=== PATIENT | female | born 1970 | race Caucasian/White ===

== ENCOUNTER 2018-12-07 14:44 | Emergency (ER) | payer OTHER ==
--- NOTE | 2018-12-07 15:22 | C.PDOC ---
History Of Present Illness 48 year old female presents for evaluation of dental pain for a few days. The patient reports waking up this morning with pain and swelling to the left side of her face to the periorbital area. Denies fever, chills, and any other as sociated symptoms. <Lillian Feliciano - Last Filed: 12/07/18 15:58> <Carly Rosas - Last Filed: 12/07/18 15:14> History Per: Patient History/Exam Limitations: no limitations Onset/Duration Of Symptoms: Days Current Symptoms Are (Timing): Still Present Recent travel outside of the [place]: No <Lillian Feliciano - Last Filed: 12/07/18 15:58> Chief Complaint (Nursing): Dental Pain Past Medical History Vital Signs: Last Vital Signs Temp 98.4 F 12/07/18 15:01 Pulse 115 H 12/07/18 15:01 Resp 20 12/07/18 15:01 BP 160/69 H 12/07/18 15:01 Pulse Ox 99 12/07/18 15:01 - Medical History PMH: Anxiety, Bipolar Disorder, Depression, Fractures, HTN, Hypercholesterolemia Denies: Chronic Kidney Disease - Social History Hx Alcohol Use: No Hx Substance Use: No - Immunization History Hx Tetanus Toxoid Vaccination: No Hx Influenza Vaccination: No Hx Pneumococcal Vaccination: No <Carly Rosas - Last Filed: 12/07/18 15:14> Reviewed: Historical Data, Nursing Documentation, Vital Signs Vital Signs: Last Vital Signs Temp 98.4 F 12/07/18 15:01 Pulse 99 H 12/07/18 15:37 Resp 17 12/07/18 15:37 BP 123/82 12/07/18 15:37 Pulse Ox 99 12/07/18 15:39 Family History: States: Unknown Family Hx <Lillian Feliciano - Last Filed: 12/07/18 15:58> Review Of Systems Constitutional: Negative for: Fever, Chills ENT: Positive for: Other ((+) dental pain. (+) swelling to the left side of the face to the periorbital area. ) <Lillian Feliciano - Last Filed: 12/07/18 15:58> Physical Exam - Physical Exam Skin: Warm, Dry Head: Atraumatic, Normacephalic, Other ((+) redness and exquisite tenderness maxillary area. (+) inferior periorbital swelling and erythema.) Eye(s): bilateral: Normal Inspection Ear(s): Bilateral: Normal Oral Mucosa: Moist Teeth: Other (missing (+) premolar and 2nd molar, small pieces of tooth visualized in the socket that appear decayed.) Throat: Normal, No Erythema, No Exudate Neck: Normal ROM, Supple, No Other ((-) cervical adenopathy.) Neurological/Psych: Oriented x3, Normal Speech, Normal Cognition <Lillian Feliciano - Last Filed: 12/07/18 15:58> ED Course And Treatment O2 Sat by Pulse Oximetry: 99 <RosasCarly - Last Filed: 12/07/18 15:14> - Laboratory Results Result Diagrams: 12/07/18 15:33 Pulse Ox Interpretation: Normal <Lillian Feliciano - Last Filed: 12/07/18 15:58> Medical Decision Making Medical Decision Making: Initial plan: -CT orbits/facials w/ contrast -Morphine -Blood sent. -Blood culture -Urinalysis <Lillian Feliciano - Last Filed: 12/07/18 15:58> Disposition <RosasCarly - Last Filed: 12/07/18 15:14> <Lillian Feliciano - Last Filed: 12/07/18 15:58> - Disposition Forms: [facility] (Maori) - Scribe Statement The provider has reviewed the documentation as recorded by the Scribe (Beba Aguilar) Provider Attestation: All medical record entries made by the Scribe were at my direction and personally dictated by me. I have reviewed the chart and agree that the record accurately reflects my personal performance of the history, physical exam, medical decision making, and the department course for this patient. I have also personally directed, reviewed, and agree with the discharge instructions and disposition. <BradenLillian Michelle - Last Filed: 12/07/18 15:58>
[2018-12-07 15:36] LABS: BASO # 0.1 K/uL (0.0-0.2); BASO % 0.6 % (0.0-2.0); EOS % 0.2 % (0.0-4.0); HEMOGLOBIN 12.8 g/dL (11.0-16.0); LYMPH # 1.9 K/uL (1.0-4.3); LYMPH % 14.5 % (20.0-40.0); MEAN CELL VOLUME 91.7 fL (81.0-99.0); MEAN CORPUSCULAR HEMOGLOBIN 31.2 pg (27.0-31.0); MONO # 1.1 K/uL (0.0-0.8); MONO % 7.9 % (0.0-10.0); NEUT # 10.3 K/uL (1.8-7.0); NEUT % 76.8 % (50.0-75.0); RBC 4.12 Mil/uL (3.80-5.20); RED CELL DISTRIBUTION WIDTH 13.8 % (11.5-14.5); WHITE BLOOD COUNT 13.4 K/uL (4.8-10.8)
[2018-12-07 15:40] VITALS: RESP 17
--- NOTE | 2018-12-07 16:03 | C.PDOC ---
History Of Present Illness 48 year old female presents for evaluation of dental pain for a few days. The patient reports waking up this morning with pain and swelling to the left side of her face to the periorbital area. Denies fever, chills, and any other as sociated symptoms. Time Seen by Provider: 12/07/18 15:15 Chief Complaint (Nursing): Dental Pain History Per: Patient History/Exam Limitations: no limitations Onset/Duration Of Symptoms: Days Current Symptoms Are (Timing): Still Present Recent travel outside of the [place]: No Past Medical History Reviewed: Historical Data, Nursing Documentation, Vital Signs Vital Signs: Last Vital Signs Temp 98.4 F 12/07/18 15:01 Pulse 99 H 12/07/18 15:37 Resp 17 12/07/18 15:37 BP 123/82 12/07/18 15:37 Pulse Ox 98 12/07/18 15:37 - Medical History PMH: Anxiety, Bipolar Disorder, Depression, Fractures, HTN, Hypercholesterolemia Denies: Chronic Kidney Disease Family History: States: Unknown Family Hx - Social History Hx Alcohol Use: No Hx Substance Use: No - Immunization History Hx Tetanus Toxoid Vaccination: No Hx Influenza Vaccination: No Hx Pneumococcal Vaccination: No Review Of Systems Constitutional: Negative for: Fever, Chills Eyes: Negative for: Vision Change ENT: Positive for: Mouth Pain, Mouth Swelling, Other ((+) dental pain. (+) pain and swelling to the left side of her face to the periorbital area. ). Negative for: Throat Swelling Cardiovascular: Negative for: Chest Pain Respiratory: Negative for: Shortness of Breath Physical Exam - Physical Exam Appears: No Acute Distress Skin: Warm, Dry Head: Atraumatic, Normacephalic, Other ((+) redness and exquisite tenderness maxillary area. (+) inferior periorbital swelling and erythema.) Eye(s): bilateral: Normal Inspection, PERRL, EOMI Oral Mucosa: Moist Teeth: Caries, Other (missing left upper premolar and 2nd molar: small pieces of tooth visualized in the socket that appear decayed.) Gingiva: Erythema, Swelling (on left upper ridge), Tender Throat: Normal, No Erythema, No Exudate Neck: Normal ROM, Supple, No Other ((-) cervical adenopathy.) Lymphatic: No Adenopathy Neurological/Psych: Oriented x3, Normal Speech, Normal Cognition ED Course And Treatment - Laboratory Results Result Diagrams: 12/07/18 15:33 12/07/18 16:00 Lab Interpretation: Abnormal (WBC 13.4) O2 Sat by Pulse Oximetry: 98 (RA) Pulse Ox Interpretation: Normal - CT Scan/US Orbits/Facial CT Other Rad Studies (CT/US): Read By Radiologist, Radiology Report Reviewed CT/US Interpretation: FINDINGS: BONES: No acute fracture or aggressive appearing osseous lesion. The mandible is intact. Note is made that evaluation of the dental region is limited due to streak artifact from prior dental surgery and fillings. SOFT TISSUES: The soft tissues are unremarkable. SINUSES: There are significant air-fluid level and mucous memory thickening involving the left maxillary sinus. Mild inflammatory changes are seen within the ethmoid sinuses. ORBITS: The orbits and globes appear symmetric. There does appear to be soft tissue swelling about the superolateral aspect of the left orbit and left maxillary region. IMPRESSION: No acute fracture or acute osseous abnormality demonstrated. Limited evaluation of the dental region. Air-fluid level mucous membrane thickening left maxillary sinus mucous membrane thickening ethmoid sinuses. Soft tissue swelling along the superolateral aspect of the left orbit and left maxillary region. Clinical correlation advised. Progress Note: Patient treated in ED with Zosyn IV, Tylenol and Motrin for low grade fever. Reevaluation Time: 18:40 Reassessment Condition: Unchanged Medical Decision Making Medical Decision Making: Initial plan: -CT orbits/facials w/ contrast -Morphine -Blood sent. -Blood culture -Urinalysis Disposition Counseled Patient/Family Regarding: Studies Performed, Diagnosis, Need For Followup - Disposition Referrals: Azael Figueroa MD [Medical Doctor] - Disposition: HOME/ ROUTINE Disposition Time: 18:41 Condition: STABLE Additional Instructions: Follow up with your dentist as soon as possible. take Ibuprophen 3 tablets every 6 hours for pain or fever as needed. Prescriptions: Amoxicillin/Clavulanate [Augmentin 875 MG-125 MG] 1 tab PO BID #14 tab Instructions: Cellulitis (Skin Infection), Adult (DC), Tooth Decay, Adult Forms: [facility] (Spanish) - Clinical Impression Clinical Impression: Cellulitis and abscess of face, Dental caries - Scribe Statement The provider has reviewed the documentation as recorded by the Scribe (Beba Mndez) Provider Attestation: All medical record entries made by the Scribe were at my direction and personally dictated by me. I have reviewed the chart and agree that the record accurately reflects my personal performance of the history, physical exam, medical decision making, and the department course for this patient. I have also personally directed, reviewed, and agree with the discharge instructions and disposition.
[2018-12-07 16:21] LABS: ALB/GLOB RATIO 1.2 (1.0-2.1); ALBUMIN 4.4 g/dL (3.5-5.0); ALT/SGPT 8 U/L (9-52); AST/SGOT 21 U/L (14-36); BLOOD UREA NITROGEN 14 mg/dL (7-17); CALCIUM 9.7 mg/dl (8.6-10.4); GFR NON-AFRICAN AMERICAN 59
[2018-12-07] MEDS ORDERED: Iodixanol 320 MG/ML 100 ML BOTTLE IV ONE (17:09)
[2018-12-07] MEDS ORDERED: Piperacillin/Tazobact 3.375 gm 100 ML IV STA (17:34)
[2018-12-07] MEDS ORDERED: Piperacillin/Tazobact 3.375 gm 100 ML IVPB ONE (17:40)
[2018-12-07 18:59] VITALS: BP 108/72; PULSE 90; TEMP 99.4; O2SAT 97
--- NOTE | 2018-12-07 22:05 | CT ---
Date of service: 12/07/2018 PROCEDURE: CT MAXILLOFACIAL BONES and ORBITS WITH CONTRAST HISTORY: r/o left dental abscess COMPARISON: None. TECHNIQUE: Contiguous axial CT images of the maxillofacial bones and orbits were obtained following administration of IV contrast. Coronal and sagittal reformats were generated. Intravenous contrast Dose: 100 mL of Visipaque 320 intravenously Radiation dose: Total exam DLP = 673.47 mGy-cm. This CT exam was performed using one or more of the following dose reduction techniques: Automated exposure control, adjustment of the mA and/or kV according to patient size, and/or use of iterative reconstruction technique. FINDINGS: NASAL BONES: Unremarkable. ORBITS: There is mild left periorbital soft tissue swelling noted extended to left facial region. PARANASAL SINUSES/ MASTOIDS: There is moderate mucosal thickening and possible air-fluid level at the left maxillary sinus. There also small air-fluid level at the left sphenoid sinus. MAXILLA: There are multiple periodontal lucency noted more prominent at left lateral incisor suggestive of periodontal abscesses. There is 1.5 x 0.9 centimeter abscess anterior to left lateral incisor tooth surrounding with subcutaneous inflammatory changes. MANDIBLE/ TEMPOROMANDIBULAR JOINTS: Unremarkable. SKULL BASE: Unremarkable. TEMPORAL BONES: Middle ears and mastoid grossly unremarkable. OTHER FINDINGS: None. IMPRESSION: Multiple maxillary periodontal abscesses. 1.5 x 0.9 centimeter abscess noted around and anterior to the left maxillary lateralincisor tooth surrounding with inflammatory changes. Soft tissue swelling extending from the left maxillary region to the left periorbital region. Mucosal thickening and air-fluid level in the left maxillary and left sphenoid sinuses. Preliminary report was submitted by [facility] Rad[facility].
== END 2018-12-07 19:00 | disposition home or self-care (01) ==
LOC: C.ER 14:44
DX: L03.211 Cellulitis of face (principal); L02.01 Cutaneous abscess of face; K02.9 Dental caries, unspecified
CPT/HCPCS: 36415; 70481; 80053; 84703; 85025; 87040; 96365; 96375; 99285; J2270; J2543; Q9967